=== PATIENT | male | born 1955 | race Caucasian/White ===

== ENCOUNTER 2024-07-20 20:42 | Inpatient (IN) | payer MEDICARE ==
[~2024-07-20] VITALS: Ht 175.3 cm; Wt 94.4 kg
[~2024-07-20 20:42] MED LIST: MethylPREDNISolone Sod Succ 125 MG Vial IV SCH
[2024-07-20 21:23] LABS: BASOPHILS ABSOLUTE AUTO 0.05 K/mm3 (0.00-0.23); BASOPHILS PERCENT AUTO 0 % (0-2); EOSINOPHILS ABSOLUTE AUTO 0.14 K/mm3 (0.00-0.68); EOSINOPHILS PERCENT AUTO 1 % (0-6); Hematocrit 41.1 % (37.0-53.0); Hemoglobin 14.2 g/dL (13.5-17.5); IMMATURE GRAN ABSOLUTE AUTO 0.15 K/mm3 (0.00-0.10); IMMATURE GRAN PERCENT AUTO 1 % (0-1); LYMPHOCYTES ABSOLUTE AUTO 1.69 K/mm3 (0.84-5.20); LYMPHOCYTES PERCENT AUTO 9 % (21-46); MONOCYTES ABSOLUTE AUTO 1.14 K/mm3 (0.16-1.47); MONOCYTES PERCENT AUTO 6 % (4-13); Mean Corpuscular HGB 32.7 pg (26.0-34.0); Mean Corpuscular HGB Conc 34.5 g/dL (31.5-36.5); Mean Corpuscular Volume 95 fL (80-100); Mean Platelet Volume 11.8 fL (9.1-12.4); NEUTROPHILS ABSOLUTE AUTO 16.79 K/mm3 (1.96-9.15); NEUTROPHILS PERCENT AUTO 84 % (41-73); Platelet Count 119 K/mm3 (150-400); RDW Standard Deviation 45.2 fL (35.1-46.3); Red Blood Cell Count 4.34 M/mm3 (4.30-5.90); White Blood Cell Count 19.96 K/mm3 (4.00-11.30)
[2024-07-20 21:45] LABS: Albumin, Blood 3.4 g/dL (3.4-5.0); Albumin/Globulin Ratio 0.9 (0.8-1.8); Bilirubin, Total 0.7 mg/dL (0.1-1.0); Bun/Creatinine Ratio 22.2 (12.0-20.0); Calcium, Blood 9.3 mg/dL (8.5-10.1); Creatinine, Blood 1.08 mg/dL (0.60-1.20); Globulin, Blood 3.6 g/dL (2.2-4.0)
[2024-07-20] MEDS ORDERED: CefTRIAXone Sodium 1,000 MG in NS 50 ML IV ONE (23:00)
[2024-07-20] MEDS ORDERED: Ipratropium/Albuterol SulF 2.5-0.5MG/3 ML Amp INH ONE (23:00)
[2024-07-20] MEDS ORDERED: LOSA50 PO (23:40)
[2024-07-20] MEDS ORDERED: ALBU90OI INH (23:40)
[2024-07-20] MEDS ORDERED: FLU VACC TS2024-25(6MOS UP)/PF 45 MCG/0.5 ML SYRINGE IM ONE (23:50)
[2024-07-20] MEDS ORDERED: Acetaminophen 325 MG TABLET PO PRN (23:50)
[2024-07-20] MEDS ORDERED: Ipratropium/Albuterol SulF 2.5-0.5MG/3 ML Amp INH SCH (23:55)
[2024-07-21] MEDS ORDERED: Azithromycin 500 MG in NS 250 ML IV SCH (00:03)
[2024-07-21 05:14] LABS: BASOPHILS ABSOLUTE AUTO 0.06 K/mm3 (0.00-0.23); BASOPHILS PERCENT AUTO 0 % (0-2); EOSINOPHILS PERCENT AUTO 0 % (0-6); Hematocrit 43.2 % (37.0-53.0); Hemoglobin 14.7 g/dL (13.5-17.5); IMMATURE GRAN PERCENT AUTO 1 % (0-1); LYMPHOCYTES PERCENT AUTO 8 % (21-46); MONOCYTES ABSOLUTE AUTO 0.81 K/mm3 (0.16-1.47); MONOCYTES PERCENT AUTO 4 % (4-13); Mean Corpuscular HGB 32.5 pg (26.0-34.0); Mean Corpuscular Volume 96 fL (80-100); Mean Platelet Volume 11.9 fL (9.1-12.4); NEUTROPHILS ABSOLUTE AUTO 17.93 K/mm3 (1.96-9.15); NEUTROPHILS PERCENT AUTO 87 % (41-73); Platelet Count 123 K/mm3 (150-400); Red Blood Cell Count 4.52 M/mm3 (4.30-5.90)
[2024-07-21 05:46] LABS: CORONAVIRUS COVID-19 AG Negative (NEGATIVE); INFLUENZA A AG Positive (NEGATIVE); INFLUENZA B AG Negative (NEGATIVE)
[2024-07-21 05:56] LABS: Albumin, Blood 3.5 g/dL (3.4-5.0); Albumin/Globulin Ratio 0.9 (0.8-1.8); Bilirubin, Total 0.6 mg/dL (0.1-1.0); Calcium, Blood 9.7 mg/dL (8.5-10.1); Globulin, Blood 3.8 g/dL (2.2-4.0); Magnesium, Blood 2.4 mg/dL (1.6-2.4); Potassium, Blood 4.2 mmol/L (3.5-5.5); Total Protein, Blood 7.3 g/dL (6.4-8.2)
[2024-07-21] MEDS ORDERED: GuaiFENesin 600 MG TabCR PO SCH (09:00)
[2024-07-21] MEDS ORDERED: Enoxaparin 40 MG/0.4 ML SYR SC SCH (09:00)
[2024-07-21] MEDS ORDERED: Docusate Sodium 100 MG Cap PO SCH (09:00)
[2024-07-21] MEDS ORDERED: Lactobacil 2-S.Thermo-Bifido 1 1 Cap PO SCH (09:00)
[2024-07-21] MEDS ORDERED: Doxycycline Hyclate 100 MG TAB PO SCH (09:00)
[2024-07-21] MEDS ORDERED: Losartan Potassium 50 MG Tab PO SCH (09:00)
[2024-07-21 10:44] VITALS: BP 164/80
[2024-07-21] MEDS ORDERED: MethylPREDNISolone Sod Succ 125 MG Vial IV SCH (11:00)
[2024-07-21] MEDS ORDERED: Albuterol 2.5 MG/3 ML VIAL INH PRN (11:05)
[2024-07-21] MEDS ORDERED: BENZ100A PO (11:06)
[2024-07-21] MEDS ORDERED: PRED20 PO (11:07)
[2024-07-21] MEDS ORDERED: AZIT250 PO (11:08)
[2024-07-21] MEDS ORDERED: Oseltamivir Phosphate 75 MG Cap PO SCH (12:00)
[2024-07-21 16:00] VITALS: BP 164/67
[2024-07-21] MEDS ORDERED: NS 250 ML IV PRN (19:40)
[2024-07-21 19:41] VITALS: BP 227/92
[2024-07-21 20:13] VITALS: BP 189/92
[2024-07-21] MEDS ORDERED: CefTRIAXone Sodium 1,000 MG in NS 100 ML IV SCH (21:00)
[2024-07-21 21:17] VITALS: BP 181/79
[2024-07-21 22:20] VITALS: BP 186/80
[2024-07-21] MEDS ORDERED: Diazepam 5 MG Tab PO ONE (22:45)
[2024-07-21] MEDS ORDERED: Temazepam 15 MG Cap PO ONE (22:55)
[2024-07-22] MEDS ORDERED: Ipratropium Bromide INH 0.02% 0.5 mg/2.5ML Vial INH PRN (00:55)
[2024-07-22 04:30] VITALS: BP 148/81
[2024-07-22 05:18] LABS: BASOPHILS ABSOLUTE AUTO 0.04 K/mm3 (0.00-0.23); BASOPHILS PERCENT AUTO 0 % (0-2); EOSINOPHILS ABSOLUTE AUTO 0.09 K/mm3 (0.00-0.68); EOSINOPHILS PERCENT AUTO 0 % (0-6); Hematocrit 39.9 % (37.0-53.0); Hemoglobin 13.6 g/dL (13.5-17.5); IMMATURE GRAN ABSOLUTE AUTO 0.17 K/mm3 (0.00-0.10); IMMATURE GRAN PERCENT AUTO 1 % (0-1); LYMPHOCYTES ABSOLUTE AUTO 1.89 K/mm3 (0.84-5.20); LYMPHOCYTES PERCENT AUTO 9 % (21-46); MONOCYTES ABSOLUTE AUTO 1.19 K/mm3 (0.16-1.47); MONOCYTES PERCENT AUTO 5 % (4-13); Mean Corpuscular HGB 32.2 pg (26.0-34.0); Mean Corpuscular HGB Conc 34.1 g/dL (31.5-36.5); Mean Corpuscular Volume 95 fL (80-100); Mean Platelet Volume 12.9 fL (9.1-12.4); NEUTROPHILS ABSOLUTE AUTO 18.86 K/mm3 (1.96-9.15); NEUTROPHILS PERCENT AUTO 85 % (41-73); Platelet Count 127 K/mm3 (150-400); RDW Standard Deviation 44.7 fL (35.1-46.3); Red Blood Cell Count 4.22 M/mm3 (4.30-5.90); White Blood Cell Count 22.24 K/mm3 (4.00-11.30)
[2024-07-22 05:54] LABS: Albumin, Blood 3.1 g/dL (3.4-5.0); Albumin/Globulin Ratio 0.9 (0.8-1.8); Bilirubin, Total 0.4 mg/dL (0.1-1.0); Bun/Creatinine Ratio 32.1 (12.0-20.0); Calcium, Blood 9.5 mg/dL (8.5-10.1); Creatinine, Blood 0.94 mg/dL (0.60-1.20); Globulin, Blood 3.5 g/dL (2.2-4.0); Potassium, Blood 4.4 mmol/L (3.5-5.5); Total Protein, Blood 6.6 g/dL (6.4-8.2)
[2024-07-22 07:47] VITALS: BP 189/92
[2024-07-22] MEDS ORDERED: Insulin Human Lispro 100 Units/ML 3ML Syringe SC SCH (08:05)
[2024-07-22] MEDS ORDERED: MetFORMIN HCl 500 mg PO SCH (08:07)
[2024-07-22] MEDS ORDERED: Losartan Potassium 50 MG Tab PO SCH (09:00)
[2024-07-22 15:53] VITALS: BP 151/82
[2024-07-22 20:50] VITALS: BP 157/86
[2024-07-23] MEDS ORDERED: Temazepam 15 MG Cap PO ONE (02:00)
[2024-07-23 02:15] VITALS: BP 134/59
[2024-07-23 05:20] LABS: BASOPHILS ABSOLUTE AUTO 0.04 K/mm3 (0.00-0.23); BASOPHILS PERCENT AUTO 0 % (0-2); EOSINOPHILS PERCENT AUTO 0 % (0-6); Hematocrit 39.5 % (37.0-53.0); Hemoglobin 13.4 g/dL (13.5-17.5); IMMATURE GRAN ABSOLUTE AUTO 0.07 K/mm3 (0.00-0.10); IMMATURE GRAN PERCENT AUTO 0 % (0-1); LYMPHOCYTES ABSOLUTE AUTO 1.83 K/mm3 (0.84-5.20); LYMPHOCYTES PERCENT AUTO 11 % (21-46); MONOCYTES ABSOLUTE AUTO 0.81 K/mm3 (0.16-1.47); MONOCYTES PERCENT AUTO 5 % (4-13); Mean Corpuscular HGB 32.5 pg (26.0-34.0); Mean Corpuscular HGB Conc 33.9 g/dL (31.5-36.5); Mean Corpuscular Volume 96 fL (80-100); Mean Platelet Volume 12.8 fL (9.1-12.4); NEUTROPHILS ABSOLUTE AUTO 13.93 K/mm3 (1.96-9.15); NEUTROPHILS PERCENT AUTO 84 % (41-73); Platelet Count 140 K/mm3 (150-400); RDW Coefficient Variation 12.9 % (11.7-14.2); RDW Standard Deviation 45.7 fL (35.1-46.3); Red Blood Cell Count 4.12 M/mm3 (4.30-5.90); White Blood Cell Count 16.68 K/mm3 (4.00-11.30)
[2024-07-23 06:02] LABS: Albumin, Blood 3.1 g/dL (3.4-5.0); Albumin/Globulin Ratio 0.9 (0.8-1.8); Bilirubin, Total 0.7 mg/dL (0.1-1.0); Bun/Creatinine Ratio 31.9 (12.0-20.0); Calcium, Blood 9.2 mg/dL (8.5-10.1); Creatinine, Blood 0.88 mg/dL (0.60-1.20); Globulin, Blood 3.3 g/dL (2.2-4.0); Potassium, Blood 4.5 mmol/L (3.5-5.5); Total Protein, Blood 6.4 g/dL (6.4-8.2)
[2024-07-23 08:01] VITALS: BP 135/73
[2024-07-23] MEDS ORDERED: DOXYCYCLINE HYC50 M1 PO (10:06)
[2024-07-23] MEDS ORDERED: METF500C PO (10:07)
[2024-07-23] MEDS ORDERED: TAMIFLU7511 PO (10:07)
== END 2024-07-23 13:09 | disposition home or self-care (01) | DRG 193 ==
LOC: ER 20:42 → ERHOLD 20:43 → ER 20:43 → ERHOLD 20:43 → MEDS 20:44 → ERHOLD 07-21 10:36 → MEDS 07-21 10:36 → ERHOLD 07-21 15:02 → MEDS 07-21 15:02
PROVIDERS: Emergency Medicine; Family Medicine; ADMIT Student in an Organized Health Care Education/Training Program
DX: J10.1 Influenza due to other identified influenza virus with other respiratory manifestations (principal); J96.01 Acute respiratory failure with hypoxia; J44.1 Chronic obstructive pulmonary disease with (acute) exacerbation; I10 Essential (primary) hypertension; E66.9 Obesity, unspecified; E11.9 Type 2 diabetes mellitus without complications; Z87.891 Personal history of nicotine dependence; Z68.31 Body mass index [BMI] 31.0-31.9, adult; R05.1 Acute cough; J98.8 Other specified respiratory disorders
CPT/HCPCS: 36415; 71046; 80053; 82947; 83036; 83605; 83735; 83880; 84145; 85025; 87040; 87070; 87205; 87428-QW; 87449; 93005; 93010; 94640; 94664; 94761; 94762; 96365; 96367; 96372-59; 96375; 96376; 99285-25; A9270; G0378; J0456; J0696; J1650; J2919; J7050

== ENCOUNTER 2024-08-12 09:41 | Inpatient (IN) | payer MEDICARE, OTHER ==
[~2024-08-12] VITALS: Ht 175.3 cm; Wt 93.7 kg
[~2024-08-12 09:41] MED LIST changes: +ALBU90OI INH; +AZIT250 PO; +BENZ100A PO; +DOXYCYCLINE HYC50 M1 PO; +LOSA50 PO; +METF500C PO; -MethylPREDNISolone Sod Succ 125 MG Vial IV SCH; +PRED20 PO; +TAMIFLU7511 PO
[2024-08-12 10:27] LABS: BASOPHILS ABSOLUTE AUTO 0.06 K/mm3 (0.00-0.23); BASOPHILS PERCENT AUTO 1 % (0-2); EOSINOPHILS ABSOLUTE AUTO 0.24 K/mm3 (0.00-0.68); EOSINOPHILS PERCENT AUTO 3 % (0-6); Hematocrit 36.2 % (37.0-53.0); Hemoglobin 12.7 g/dL (13.5-17.5); IMMATURE GRAN ABSOLUTE AUTO 0.01 K/mm3 (0.00-0.10); IMMATURE GRAN PERCENT AUTO 0 % (0-1); LYMPHOCYTES ABSOLUTE AUTO 2.44 K/mm3 (0.84-5.20); LYMPHOCYTES PERCENT AUTO 30 % (21-46); MONOCYTES ABSOLUTE AUTO 0.69 K/mm3 (0.16-1.47); MONOCYTES PERCENT AUTO 9 % (4-13); Mean Corpuscular HGB 32.2 pg (26.0-34.0); Mean Corpuscular HGB Conc 35.1 g/dL (31.5-36.5); Mean Corpuscular Volume 92 fL (80-100); Mean Platelet Volume 11.5 fL (9.1-12.4); NEUTROPHILS ABSOLUTE AUTO 4.65 K/mm3 (1.96-9.15); NEUTROPHILS PERCENT AUTO 58 % (41-73); Platelet Count 150 K/mm3 (150-400); RDW Coefficient Variation 12.1 % (11.7-14.2); RDW Standard Deviation 41.2 fL (35.1-46.3); Red Blood Cell Count 3.95 M/mm3 (4.30-5.90); White Blood Cell Count 8.09 K/mm3 (4.00-11.30)
[2024-08-12] MEDS ORDERED: ATOR40TA PO (10:27)
[2024-08-12 10:46] LABS: Albumin, Blood 2.9 g/dL (3.4-5.0); Albumin/Globulin Ratio 0.9 (0.8-1.8); Bilirubin, Total 0.4 mg/dL (0.1-1.0); Bun/Creatinine Ratio 22.2 (12.0-20.0); Calcium, Blood 8.6 mg/dL (8.5-10.1); Creatinine, Blood 0.86 mg/dL (0.60-1.20); Globulin, Blood 3.1 g/dL (2.2-4.0); Potassium, Blood 3.6 mmol/L (3.5-5.5)
[2024-08-12 11:47] LABS: International Normalized Ratio 0.98; Prothrombin Time Results 10.5 Sec (9.7-11.5)
[2024-08-12] MEDS ORDERED: Clopidogrel Bisulfate 75 MG Tab PO ONE (13:20)
[2024-08-12] MEDS ORDERED: Aspirin 81 MG Chew PO ONE (13:20)
[2024-08-12] MEDS ORDERED: FLU VACC TS2024-25(6MOS UP)/PF 45 MCG/0.5 ML SYRINGE IM SCH (13:55)
[2024-08-12] MEDS ORDERED: Ondansetron 4 MG TAB PO PRN (13:55)
[2024-08-12] MEDS ORDERED: Atorvastatin 40 MG Tab PO SCH (14:00)
[2024-08-12] MEDS ORDERED: Albuterol HFA200 ACT/6.7 GM INH INH PRN (14:05)
[2024-08-12 18:47] VITALS: BP 174/81
[2024-08-12 20:42] VITALS: BP 181/77
[2024-08-12] MEDS ORDERED: Losartan Potassium 50 MG Tab PO SCH (21:00)
[2024-08-12] MEDS ORDERED: Docusate Sodium 100 MG Cap PO SCH (21:00)
[2024-08-12] MEDS ORDERED: Insulin Human Lispro 100 Units/ML 3ML Syringe SC SCH (21:00)
[2024-08-12] MEDS ORDERED: Acetaminophen 500 MG Tab PO PRN (22:35)
[2024-08-12] MEDS ORDERED: HydrALAZINE HCl 25 MG Tab PO PRN (22:35)
[2024-08-13 01:36] LABS: BASOPHILS ABSOLUTE AUTO 0.06 K/mm3 (0.00-0.23); BASOPHILS PERCENT AUTO 1 % (0-2); EOSINOPHILS ABSOLUTE AUTO 0.28 K/mm3 (0.00-0.68); EOSINOPHILS PERCENT AUTO 3 % (0-6); Hematocrit 38.1 % (37.0-53.0); Hemoglobin 13.3 g/dL (13.5-17.5); IMMATURE GRAN ABSOLUTE AUTO 0.02 K/mm3 (0.00-0.10); IMMATURE GRAN PERCENT AUTO 0 % (0-1); LYMPHOCYTES ABSOLUTE AUTO 3.55 K/mm3 (0.84-5.20); LYMPHOCYTES PERCENT AUTO 40 % (21-46); MONOCYTES ABSOLUTE AUTO 0.88 K/mm3 (0.16-1.47); MONOCYTES PERCENT AUTO 10 % (4-13); Mean Corpuscular HGB 32.2 pg (26.0-34.0); Mean Corpuscular HGB Conc 34.9 g/dL (31.5-36.5); Mean Corpuscular Volume 92 fL (80-100); Mean Platelet Volume 11.9 fL (9.1-12.4); NEUTROPHILS ABSOLUTE AUTO 4.18 K/mm3 (1.96-9.15); NEUTROPHILS PERCENT AUTO 47 % (41-73); Platelet Count 149 K/mm3 (150-400); RDW Coefficient Variation 12.3 % (11.7-14.2); RDW Standard Deviation 41.4 fL (35.1-46.3); Red Blood Cell Count 4.13 M/mm3 (4.30-5.90); White Blood Cell Count 8.97 K/mm3 (4.00-11.30)
[2024-08-13 01:55] LABS: Albumin, Blood 3.2 g/dL (3.4-5.0); Albumin/Globulin Ratio 1.1 (0.8-1.8); Bilirubin, Total 0.5 mg/dL (0.1-1.0); Bun/Creatinine Ratio 20.7 (12.0-20.0); Calcium, Blood 9.3 mg/dL (8.5-10.1); Creatinine, Blood 0.82 mg/dL (0.60-1.20); Globulin, Blood 2.9 g/dL (2.2-4.0); Potassium, Blood 3.8 mmol/L (3.5-5.5); Total Protein, Blood 6.1 g/dL (6.4-8.2)
[2024-08-13 04:11] VITALS: BP 141/71
--- NOTE | 2024-08-13 05:13 | NUR ---
SHIFT SUMMARY PT A&Ox4. PT C/O LEFT SIDE WEAKNESS. 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 NO C/O PAIN. PT WENT FOR MRI AT START OF SHIFT. BP ELEVATED AT 181/77. ORDER GIVEN FOR PO HYDRALAZINE AND BP DECREASED TO 141/71. AT BEDSIDE T/O NIGHT. NO EVENTS ON TELE. BED IN LOWEST POSITION AND CALL LIGHT IN REACH.
[2024-08-13 07:52] VITALS: BP 174/80
[2024-08-13] MEDS ORDERED: Enoxaparin 40 MG/0.4 ML SYR SC SCH (09:00)
[2024-08-13] MEDS ORDERED: Clopidogrel Bisulfate 75 MG Tab PO SCH (09:00)
[2024-08-13] MEDS ORDERED: AmLODIPine Besylate 5 MG Tab PO SCH (09:00)
[2024-08-13] MEDS ORDERED: Aspirin 325 MG Tab PO SCH (09:00)
--- NOTE | 2024-08-13 10:52 | NUR ---
DR. GUILLERMO NOTIFIED THAT BLOOD PRESSURE MEDICATIONS WERE GIVEN BEFORE THE ORDER TO HOLD HTN MEDICATIONS WERE PLACED. PER MD, REASSESS BLOOD PRESSURE AND FAX FACE SHEET IF INDICATED.
[2024-08-13 11:01] VITALS: BP 157/77
[2024-08-13 16:07] VITALS: BP 166/79
--- NOTE | 2024-08-13 18:16 | NUR ---
PT IS ALERT AND ORIENTED X4, ABLE TO EXPRESS NEEDS. SPOUSE AT BEDSIDE, SLIGHT WEAKNESS NOTED TO LUE AND LLE, PT ABLE TO AMBULATE WITHOUT ASSISTANCE, REPORTED HEADACHE THIS MORNING THAT RESOLVED WITH TYLENOL. PT HAS BEEN ACCEPTED TO [facility], AWAITING BED. PT AND SPOUSE UPDATED.
[2024-08-13 19:38] VITALS: BP 167/69
[2024-08-13 20:53] VITALS: BP 167/69
--- NOTE | 2024-08-13 22:45 | NUR ---
PT A&Ox4 AND PLEASANT. NO NEURO DEFICITS NOTED AND PT REPORTS FEELING IMPROVED STRENGHT IN LEFT SIDE. VSS BUT BP ELEVATED, PER DR ORDERS WE ARE ALLOWING PERMISSIVE HTN AT THIS TIME, WITH THE GOAL OF SYSTOLIC AT 180. PT HAS COBRA TRANSFER ORDER AND A BED AT [facility] BECAME AVAILABLE. PT'S BELONGINGS WERE SENT WITH . PT LEFT BY [facility]. CALLED [facility] AND GAVE REPORT TO RECIEVING NURSE, ROLAND.
== END 2024-08-13 22:33 | disposition short-term general hospital (02) | DRG 65 ==
LOC: ER 09:41 → MEDS 13:50
PROVIDERS: Emergency Medicine; ADMIT Hospitalist
DX: I63.9 Cerebral infarction, unspecified (principal); G81.94 Hemiplegia, unspecified affecting left nondominant side; E11.9 Type 2 diabetes mellitus without complications; E78.5 Hyperlipidemia, unspecified; I65.23 Occlusion and stenosis of bilateral carotid arteries; I20.89 Other forms of angina pectoris; R29.701 NIHSS score 1; Z87.891 Personal history of nicotine dependence; Z79.899 Other long term (current) drug therapy
CPT/HCPCS: 36415; 70450; 70496; 70498; 70551; 71045; 80053; 80320; 82947; 84484; 85025; 85610; 85730; 93005; 93010; 93306; 94640; 94664; 94760; 97162; 97165; 97530; 99285-25; A9270; J1650; Q9967

== ENCOUNTER 2024-08-21 05:39 | Emergency (ER) | payer MEDICARE, OTHER ==
[~2024-08-21] VITALS: Ht 177.8 cm; Wt 90.7 kg
[~2024-08-21 05:39] MED LIST changes: +ATOR40TA PO
[2024-08-21 06:22] LABS: BASOPHILS ABSOLUTE AUTO 0.06 K/mm3 (0.00-0.23); BASOPHILS PERCENT AUTO 1 % (0-2); EOSINOPHILS ABSOLUTE AUTO 0.38 K/mm3 (0.00-0.68); EOSINOPHILS PERCENT AUTO 4 % (0-6); Hematocrit 36.5 % (37.0-53.0); Hemoglobin 12.5 g/dL (13.5-17.5); IMMATURE GRAN ABSOLUTE AUTO 0.05 K/mm3 (0.00-0.10); IMMATURE GRAN PERCENT AUTO 1 % (0-1); LYMPHOCYTES ABSOLUTE AUTO 3.08 K/mm3 (0.84-5.20); LYMPHOCYTES PERCENT AUTO 34 % (21-46); MONOCYTES ABSOLUTE AUTO 1.15 K/mm3 (0.16-1.47); MONOCYTES PERCENT AUTO 13 % (4-13); Mean Corpuscular HGB 32.1 pg (26.0-34.0); Mean Corpuscular HGB Conc 34.2 g/dL (31.5-36.5); Mean Corpuscular Volume 94 fL (80-100); Mean Platelet Volume 12.6 fL (9.1-12.4); NEUTROPHILS ABSOLUTE AUTO 4.26 K/mm3 (1.96-9.15); NEUTROPHILS PERCENT AUTO 47 % (41-73); Platelet Count 157 K/mm3 (150-400); RDW Coefficient Variation 12.2 % (11.7-14.2); RDW Standard Deviation 42.3 fL (35.1-46.3); White Blood Cell Count 8.98 K/mm3 (4.00-11.30)
[2024-08-21 06:39] LABS: International Normalized Ratio 1.01; Prothrombin Time Results 10.8 Sec (9.7-11.5)
[2024-08-21 06:42] LABS: Albumin, Blood 3.9 g/dL (3.4-5.0); Albumin/Globulin Ratio 1.3 (0.8-1.8); Bilirubin, Total 0.7 mg/dL (0.1-1.0); Bun/Creatinine Ratio 15.2 (12.0-20.0); Calcium, Blood 9.3 mg/dL (8.5-10.1); Creatinine, Blood 0.92 mg/dL (0.60-1.20); Potassium, Blood 3.8 mmol/L (3.5-5.5); Total Protein, Blood 6.9 g/dL (6.4-8.2)
[2024-08-21] MEDS ORDERED: Metoclopramide HCl 5MG / ML 2ML Vial IV ONE (07:10)
[2024-08-21] MEDS ORDERED: DiphenhydrAMINE HCl 50 MG/ML 1ML Vial IV ONE (07:10)
[2024-08-21] MEDS ORDERED: AmLODIPine Besylate 5 MG Tab PO ONE (08:20)
[2024-08-21] MEDS ORDERED: Losartan Potassium 50 MG Tab PO ONE (08:20)
[2024-08-21] MEDS ORDERED: CloNIDine 0.1 MG Tab PO ONE (10:05)
== END 2024-08-21 11:45 | disposition home or self-care (01) ==
LOC: ER 05:39
PROVIDERS: Emergency Medicine
DX: R51.9 Headache, unspecified (principal); I10 Essential (primary) hypertension; E11.9 Type 2 diabetes mellitus without complications; E78.5 Hyperlipidemia, unspecified; Z79.899 Other long term (current) drug therapy; Z87.891 Personal history of nicotine dependence
CPT/HCPCS: 70450; 80053; 80320; 85025; 85610; 85730; 93005; 93010; 96374; 96375; 99284-25; A9270; J1200; J2765